=== PATIENT | female | born 1980 | race Caucasian/White ===

== ENCOUNTER 2016-09-01 02:53 | Observation (INO) | payer BC ==
[~2016-09-01] VITALS: Ht 167.6 cm; Wt 56.7 kg
[2016-09-01 04:42] LABS: HEMOGLOBIN 14.4 gm/dl (12.3-15.3); RED BLOOD COUNT 4.61 M/UL (4.00-5.10); WHITE BLOOD COUNT 19.9 K/UL (4.5-11.0)
[2016-09-01 05:02] LABS: BUN/CREATININE RATIO 22 (0-10)
[2016-09-01] MEDS ORDERED: EXCEDRIN MIGRA1 EACH PO (10:15)
[2016-09-01] MEDS ORDERED: NEURONTIN 400400 MG PO (10:17)
[2016-09-02 06:37] LABS: HEMOGLOBIN 11.9 gm/dl (12.3-15.3); RED BLOOD COUNT 3.8 M/UL (4.00-5.10); WHITE BLOOD COUNT 9.2 K/UL (4.5-11.0)
[2016-09-02 06:41] LABS: BUN/CREATININE RATIO 18 (0-10)
[2016-09-02] MEDS ORDERED: TYLENOL 325MG325 MG PO (09:36)
[2016-09-02] MEDS ORDERED: TESSALON PERLE100 MG PO (09:37)
[2016-09-02] MEDS ORDERED: PROTONIX40 MG PO (09:37)
[2016-09-02] MEDS ORDERED: CLEOCIN HCL300 MG PO (09:38)
== END 2016-09-02 11:25 | disposition home or self-care (01) ==
LOC: ER1 02:53 → MED SURG 4 08:18 → ZEROF 08:18 → MED SURG 4 15:37
PROVIDERS: Physician Assistant; ADMIT Internal Medicine
DX: J69.0 Pneumonitis due to inhalation of food and vomit (principal); K21.9 Gastro-esophageal reflux disease without esophagitis; D72.829 Elevated white blood cell count, unspecified; Z87.891 Personal history of nicotine dependence; Z88.1 Allergy status to other antibiotic agents; Z79.899 Other long term (current) drug therapy; Z90.89 Acquired absence of other organs; Z98.51 Tubal ligation status; Z98.84 Bariatric surgery status; Z98.890 Other specified postprocedural states
CPT/HCPCS: 36415; 71020; 80048; 80053; 82150; 83690; 83735; 84703; 85025; 85027; 87040; 93005; 94640; 94664; 96361; 96365; 96366; 96367; 96375; 96376; 99285; C9113; G0378; J1956; J7030; J7050; Q9962